=== PATIENT | female | born 1965 | race Caucasian/White ===

== ENCOUNTER 2018-11-25 22:11 | Observation (INO) | payer OTHER ==
[~2018-11-25] VITALS: Ht 170.2 cm; Wt 91.3 kg
[2018-11-25] MEDS ORDERED: ASPIRIN 81 MG CHEW TABLET PO ONE (22:30)
[2018-11-25] MEDS ORDERED: NITROGLYCERIN 0.4 MG SUBL TABLET SL PRN (22:30)
[2018-11-25 22:45] VITALS: BP 132/86
[2018-11-25 23:26] LABS: BASO # 0.1 10^3/uL (0.0-0.2); BASO % 0.8 % (0.0-1.0); EOS # 0.1 10^3/uL (0.0-0.50); EOS % 2.1 % (0.0-3.0); HEMATOCRIT 37.4 % (36.0-47.0); HEMOGLOBIN 12.3 g/dl (12.0-15.5); LYMPH # 2.4 10^3/uL (1.5-4.5); LYMPH % 37.2 % (24.0-44.0); MEAN CORPUSCULAR HEMOGLOBIN 31.6 pg (27.0-33.0); MEAN CORPUSCULAR HGB CONC 32.9 g/dl (32.0-36.5); MEAN CORPUSCULAR VOLUME 96.1 fl (80.0-96.0); MONO # 0.4 10^3/uL (0.0-0.8); MONO % 6.3 % (0.0-5.0); NEUTROPHILS # 3.5 10^3/uL (1.8-7.7); NEUTROPHILS % 53.3 % (36.0-66.0); PLATELET COUNT, AUTOMATED 217 10^3/uL (150-450); RED BLOOD COUNT 3.89 10^6/uL (4.00-5.40); WHITE BLOOD COUNT 6.6 10^3/uL (4.0-10.0)
[2018-11-26 00:03] LABS: PARTIAL THROMBOPLASTIN TIME 32.4 SECONDS (25.4-37.6)
[2018-11-26 00:16] LABS: ALBUMIN 3.6 GM/DL (3.2-5.2); ALT/SGPT 23 U/L (12-78); BILIRUBIN,DIRECT < 0.1 MG/DL (0.0-0.2); BILIRUBIN,TOTAL 0.2 MG/DL (0.2-1.0); BLOOD UREA NITROGEN 22 MG/DL (7-18); CALCIUM LEVEL 8.8 MG/DL (8.5-10.1); CARBON DIOXIDE LEVEL 30 MEQ/L (21-32); CHLORIDE LEVEL 107 MEQ/L (98-107); CPK CREATINE PHOSPHOKINASE 129 U/L (26-192); CREATININE FOR GFR 0.78 MG/DL (0.55-1.30); GLOMERULAR FILTRATION RATE > 60.0 (>51); GLUCOSE, FASTING 111 MG/DL (70-100); LIPASE 151 U/L (73-393); MB/CK RELATIVE INDEX 1.78 (< OR =4); POTASSIUM SERUM 3.7 MEQ/L (3.5-5.1); SODIUM LEVEL 140 MEQ/L (136-145); TOTAL PROTEIN 6.5 GM/DL (6.4-8.2); TROPONIN I < 0.02 NG/ML (< 0.10)
[2018-11-26] MEDS ORDERED: ISOVUE-370 76% 100ML VIAL (Q9967) As Ordered ONE (00:45)
[2018-11-26 01:04] LABS: D-DIMER QUANT 511.06 ng/ml (<500)
[2018-11-26 01:40] LABS: INR 0.92; PROTHROMBIN TIME 12.4 SECONDS (12.1-14.4)
[2018-11-26] MEDS ORDERED: ZANTTAB PO (02:08)
[2018-11-26] MEDS ORDERED: BENA12.57 PO (02:08)
[2018-11-26] MEDS ORDERED: LANS15CA23 PO (02:08)
[2018-11-26] MEDS ORDERED: ZYRT10CA5 PO (02:08)
[2018-11-26 02:17] LABS: CPK CREATINE PHOSPHOKINASE 121 U/L (26-192); MB/CK RELATIVE INDEX 2.31 (< OR =4); TROPONIN I < 0.02 NG/ML (< 0.10)
[2018-11-26] MEDS ORDERED: ENOXAPARIN 40 MG/0.4 ML SYRINGE (J1650) SC SCH ×2 (02:42→02:45)
[2018-11-26] MEDS ORDERED: diphenhydrAMINE 12.5MG/5ML ELIXIR UDC PO PRN (02:45)
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
[2018-11-26 03:30] VITALS: BP 148/76
--- NOTE | 2018-11-26 05:45 | ECGEPIP ---
Stationary ECG Study [facility] - ED Test Date: 2018-11-25 Pat Name: ROSINA PLASENCIA Department: Room: - Gender: F Manufacturing Associate: jake : 1965 Requested By: DANIEL Hermosillo Order Number: [id number] Reading MD: Morgan Michel Measurements Intervals [place] Rate: 75 P: 56 HI: 164 QRS: 4 QRSD: 94 T: 30 QT: 367 QTc: 411 Interpretive Statements SINUS RHYTHM NO PRIORS FOR COMPARISON Electronically Signed On 11-26-2018 5:44:34 EDT by Morgan Michel
--- NOTE | 2018-11-26 05:45 | ECGEPIP ---
Stationary ECG Study [facility] - ED Test Date: 2018-11-26 Pat Name: ROSINA PLASENCIA Department: Room: - Gender: F Parking Station Attendant: jake : 1965 Requested By: DANIEL Hermosillo Order Number: [id number] Reading MD: Morgan Michel Measurements Intervals [place] Rate: 74 P: 54 IA: 166 QRS: 2 QRSD: 88 T: 28 QT: 381 QTc: 423 Interpretive Statements SINUS RHYTHM SIMILAR TO 11/26/18 Electronically Signed On 11-26-2018 5:45:04 EDT by Morgan Michel
[2018-11-26 06:00] VITALS: BP 135/71
[2018-11-26] MEDS ORDERED: CETIRIZINE (ZyrTEC) 10 MG TAB PO SCH (09:00)
[2018-11-26] MEDS ORDERED: FAMOTIDINE 20 MG TAB PO SCH (09:00)
[2018-11-26 10:00] VITALS: BP 120/68
--- NOTE | 2018-11-26 10:14 | REP ---
Clinical: Chest pain . Comparison: 09/14/2007 . Technique: PA and lateral. Findings: The mediastinum and cardiac silhouette are normal. The lung ely are clear and without acute consolidation, effusion, or pneumothorax. The skeletal structures are intact and normal. Impression: 1. No acute cardiopulmonary process. Electronically Signed by Jeremiah Lopez MD 11/26/2018 10:05 A
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
== END 2018-11-26 12:15 | disposition home or self-care (01) ==
LOC: M ED 22:11 → M ED INP 22:14 → UNDOADMOB 11-26 02:38 → M ED INP 11-26 02:38 → M MSPAV 11-26 03:30 → M ED INP 11-26 03:30 → UNDODISOB 11-26 12:15
PROVIDERS: ADMIT Student in an Organized Health Care Education/Training Program; ATTEND Internal Medicine
DX: R07.89 Other chest pain (principal); R79.1 Abnormal coagulation profile; K21.9 Gastro-esophageal reflux disease without esophagitis; F17.210 Nicotine dependence, cigarettes, uncomplicated; Z79.899 Other long term (current) drug therapy

== ENCOUNTER → 2022-06-23 | Outpatient (CLI) | payer MEDICARE, OTHER ==
[~2022-06-23] MED LIST: BENA12.57 PO; LANS-67 PO; ZANT150T40 PO; ZYRT10CA5 PO
== END ==
LOC: M WHC 13:46
PROVIDERS: ATTEND Family Medicine
DX: Z12.31 Encounter for screening mammogram for malignant neoplasm of breast (principal)

== ENCOUNTER → 2023-11-22 | Outpatient (CLI) | payer MEDICARE, OTHER ==
[2023-11-22 18:51] LABS: MONO SCRN NEGATIVE (NEGATIVE)
== END ==
LOC: M LAB 17:30
PROVIDERS: ATTEND Physician Assistant Medical
DX: J02.9 Acute pharyngitis, unspecified (principal)

== ENCOUNTER → 2024-12-16 | Outpatient (CLI) | payer MEDICARE, OTHER ==
[~2024-12-16] MED LIST changes: +LIDOCAINE 1% MDV 20ML VIAL As Ordered ONE
[2024-12-16 09:51] VITALS: TEMP 98.9
[2024-12-16 10:29] VITALS: BP 121/85; O2SAT 100
== END ==
LOC: M IRPRO 09:44
PROVIDERS: ATTEND Student in an Organized Health Care Education/Training Program
DX: E04.1 Nontoxic single thyroid nodule (principal)